=== PATIENT | female | born 1960 | race Caucasian/White ===

== ENCOUNTER 2016-05-08 09:05 | Emergency (ER) | payer BC ==
[2016-05-08 09:33] VITALS: BP 123/83
--- NOTE | 2016-05-08 11:20 | RAD ---
INDICATION: Left wrist injury COMPARISON: None TECHNIQUE: AP, lateral, and oblique views were obtained. FINDINGS: There is no acute fracture. There is arthritic change about the first carpometacarpal articulation. 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 There is a rounded, corticated ossific density projecting over the volar aspect of the wrist which is consistent with a remote injury. The soft tissues are normal. IMPRESSION: NO ACUTE BONY FINDINGS. MILD ARTHRITIS WITH SUSPECTED REMOTE INJURY.
--- NOTE | 2016-05-08 11:21 | RAD ---
INDICATION: Left hand injury COMPARISON: None TECHNIQUE: AP, lateral, and oblique views were obtained. FINDINGS: There is no acute fracture. There is arthritis about the first carpometacarpal articulation. IMPRESSION: NO ACUTE BONY FINDINGS.
--- NOTE | 2016-05-08 13:58 | UC ---
Abril Abel Matthew, scribed for RosaTaye rader MD on 05/08/16 at 1135 . Hand/Wrist HPI - HPI Summary HPI Summary: Nurse's Note: FELL ON Tuesday05/05/16, INJURED LEFT WRIST. LIMITED ROM, DENIES INJURY TO LEFT HAND OR FINGERS. Note: In Room Note: A 55 y/o female presents to [facility] with left wrist pain. The pain is rated 8/10 in severity. The patient states that she fell on 05/05/16 on a pile of mud. She fell onto an outstretch left wrist. The pain worsens with movement. The patient is a teacher. No Hx of left wrist fracture. She has left wrist pain from arthritis. FHx of diabetes and breast CA. - History Of Current Complaint Chief Complaint: UCUpperExtremity Stated Complaint: LT HAND INJURY Time Seen by Provider: 05/08/16 10:39 Hx Obtained From: Patient ?: No Onset/Duration: Sudden Onset, Lasting Days, Still Present Severity Initially: Moderate Severity Currently: Moderate Pain Intensity: 8 Pain Scale Used: 0-10 Numeric Character Of Pain: Throbbing Aggravating Factor(s): Movement Associated Signs And Symptoms: Positive: Negative - Allergies/Home Medications Allergies/Adverse Reactions: Allergies Allergy/AdvReac Type Severity Reaction Status Date / Time No Known Allergies Allergy Verified 05/08/16 09:26 Home Medications: Home Medications Hydrochlorothiazide TAB* [Hydrodiuril TAB*] 5 mg PO DAILY 05/08/16 [History Confirmed 05/08/16] Lisinopril TAB* [Prinivil TAB 5 MG*] 5 mg PO DAILY 05/08/16 [History Confirmed 05/08/16] Rosuvastatin Calcium 10 mg PO DAILY 05/08/16 [History Confirmed 05/08/16] PMH/Surg Hx/FS Hx/Imm Hx Cardiovascular History Of: Reports: Hypertension - Surgical History Surgical History: Yes Surgery Procedure, Year, and Place: TONSILS - Family History Known Family History: Positive: Diabetes Family History: FHx of Breast CA - Social History Alcohol Use: Occasionally Substance Use Type: None Smoking Status (MU): Former Smoker Length of Time of Smoking/Using Tobacco: 30 YRS When Did the Patient Quit Smoking/Using Tobacco: 7 WKS Review of Systems Constitutional: Negative, Fever Eyes: Negative ENT: Negative Respiratory: Negative Cardiovascular: Negative Gastrointestinal: Negative Genitourinary: Negative Motor: Negative Neurovascular: Negative Musculoskeletal: Arthralgia - left wrist pain Neurological: Negative Psychological: Negative All Other Systems Reviewed And Are Negative: Yes Physical Exam Triage Information Reviewed: Yes Appearance: Well-Appearing, No Pain Distress, Well-Nourished Vital Signs: Initial Vital Signs Temp 98.2 F 05/08/16 09:27 Pulse 72 05/08/16 09:27 Resp 18 05/08/16 09:27 BP 123/83 05/08/16 09:27 Pulse Ox 99 05/08/16 09:27 Vital Signs Reviewed: Yes Eyes: Positive: Conjunctiva Clear ENT: Positive: Hearing grossly normal, Pharynx normal, TMs normal. Negative: Muffled/hoarse voice Neck: Positive: Supple, Nontender Respiratory: Positive: Chest non-tender, Lungs clear, Normal breath sounds, No respiratory distress Cardiovascular: Positive: RRR, No Murmur Abdomen Description: Positive: Nontender, No Organomegaly, Soft Musculoskeletal: Positive: Other: - No snuffbox tenderness; DISCOMFORT OVER THE DISTAL ULNAR STYLOID AND THE ULNAR CARPAL JOINT; No obvious deformities, circulation and motor/sensory intact Neurological: Positive: Alert Psychological: Positive: Age Appropriate Behavior Skin Exam: Normal Skin: Negative: rashes Diagnostics - Radiology Wrist XR Xray Interpretation: No Acute Changes - IMPRESSION: NO ACUTE BONY FINDINGS. MILD ARTHRITIS WITH SUSPECTED REMOTE INJURY. Radiology Interpretation Completed By: Radiologist Hand XR Xray Interpretation: No Acute Changes - IMPRESSION: NO ACUTE BONY FINDINGS. Radiology Interpretation Completed By: Radiologist Hand/Wrist Course/Dx - Course Course Of Treatment: Patient fell on outstretch left wrist c/o pain in the area. XRs are negative. Explained to patient that this is most likely a contusion and soft tissue strain and sprain. - Differential Dx/Diagnosis Provider Diagnoses: Contusion and soft tissue injury of the left wrist Discharge - Discharge Plan Condition: Stable Disposition: HOME Patient Education Materials: Wrist Injury (ED), Contusion in Adults (ED) Referrals: Jahaira Mosher MD [Primary Care Provider] - Additional Instructions: WE DISCUSSED: Use splint; elevate; warm moist heat in the morning; ice during the day to area for discomfort. Ibuprofen, as needed. Follow up at any time for increased pain or disability. The documentation as recorded by the faizaibAbril boyle Matthew accurately reflects the service I personally performed and the decisions made by me, Taye Farrar MD.
== END 2016-05-08 12:18 | disposition home or self-care (01) ==
LOC: UCEAST 09:05
DX: S60.212A Contusion of left wrist, initial encounter (principal); W17.89XA Other fall from one level to another, initial encounter; I10 Essential (primary) hypertension; Z87.891 Personal history of nicotine dependence
CPT/HCPCS: 99202; G0463